=== PATIENT | female | born 1940 | race Caucasian/White ===

== ENCOUNTER 2017-03-30 13:14 | Day surgery (SDC) | payer MEDICARE ==
[2017-03-30] MEDS ORDERED: PROPOFOL 10 MG/ML VIAL IV ONE (13:15)
[2017-03-30] MEDS ORDERED: LIDOCAINE 2% MDV (20MG/ML) 20ML VIAL IV ONE (13:15)
--- NOTE | 2017-03-31 13:50 | Operative Note ---
DATE OF SURGERY: 03/30/2017 REFERRING PHYSICIAN: Cristobal Almanza DO PREOPERATIVE DIAGNOSIS: See below. POSTOPERATIVE DIAGNOSIS: See below. PROCEDURE: COLONOSCOPY to the cecum. INDICATION: History of adenomatous polyps with 2 large polyps removed 3 years ago. She returns at this time for surveillance. Intravenous sedation was administered by the Department of Anesthesiology and included Diprivan titrated to effect. PROCEDURE: Following informed consent from this alert individual, including a discussion of the risks and benefits of the procedure and an opportunity for the patient to ask questions, the patient was placed in the left lateral decubitus position. A digital rectal examination was performed. No abnormalities were noted. Following this, an Olympus [id number] video colonoscope was inserted into the rectum without resistance. The rectal mucosa had a normal appearance, with normal folds and distensibility. The colonoscope was advanced up through the bowel to the level of the cecum without much difficulty. Throughout the bowel, the mucosa appeared normal, the folds are normal and the bowel is fairly well distensible. There was a bit of retained liquid and semisolid stool noted, most of which could be washed away with water wash with fairly good visualization. The cecum was defined by noting the appendiceal orifice and ileocecal valve. From the base of the cecum, the colonoscope was then withdrawn. No abnormalities were noted upon withdrawal. Retroflexion of the rectum was endoscopically unremarkable. The instrument was removed. The patient tolerated the procedure well and was returned to the recovery area in stable condition. IMPRESSION: Unremarkable colonoscopy to the cecum. RECOMMENDATIONS: Patient was advised to have recheck colonoscopy in 5 years' time for polyp surveillance. She will otherwise follow up with Dr. Cristobal Almanza. As always, thank you for allowing me to participate in the care of your patient. CC: DO ROD Hodgson
== END 2017-03-30 14:43 | disposition home or self-care (01) ==
LOC: HOP 13:14
PROVIDERS: ATTEND Internal Medicine Gastroenterology
DX: Z12.11 Encounter for screening for malignant neoplasm of colon (principal); Z86.010 Personal history of colon polyps; E78.00 Pure hypercholesterolemia, unspecified; F32.9 Major depressive disorder, single episode, unspecified
CPT/HCPCS: 00740; G0105

== ENCOUNTER 2017-06-11 04:35 | Emergency (ER) | payer MEDICARE ==
[2017-06-11] MEDS ORDERED: SODIUM CHLORIDE 0.9% 500 ML IV ONE (04:49)
[2017-06-11] MEDS ORDERED: MECLIZINE 25 MG TABLET PO ONE (04:49)
--- NOTE | 2017-06-11 04:57 | Emergency Department Record ---
History of Present Illness - General Chief Complaint: Dizziness Stated Complaint: DIZZY Time Seen by Provider: 06/11/17 04:37 Source: Patient, Family Mode of Arrival: Ambulatory Limitations: No limitations - History of Present Illness Initial Comments: 76 yo female presents with dizziness that started about 25 hours ago upon waking yesterday morning. She has a feeling of spinning and unsteadiness. The symptoms gradually improved yesterday but never resolved. She woke at 4am this morning with a return of symptoms. She has had vertigo in the past. She feels the most intense symptoms with moving and changing position. If she is still she feels much better. No other symptoms associated. No headache, double vision, speech changes, no coordination changes of the hands or arms, no swallowing changes. No history of stroke. PCP is Dr Almanza. Complaint: Dizziness -: Hour(s) (25 hours) Timing: Awoke with symptoms (yesterday) Description: Difficulty walking, "Room spinning", Sense of movement History of Same: Yes History of Trauma: No Severity: Moderate Improves With: Remaining still Worsens With: Movement, Position Associated Symptoms: Denies other symptoms - Shay Coma Scale Eye Response: (4) Open spontaneously Motor Response: (6) Obeys commands Verbal Response: (5) Oriented Shay Total: 15 - Symptoms of Stroke Onset of Symptoms Date: 06/10/17 Onset of Symptoms Time: 04:00 Symptoms of stroke: Dizziness - Related Data Home Medications Medication Instructions Recorded Confirmed Last Taken Multivitamin [Multi-Vitamin Daily] 1 each PO DAILY 06/11/17 06/11/17 Unknown Paroxetine HCl [Paroxetine HCl] 20 mg PO DAILY 06/11/17 06/11/17 Unknown Rosuvastatin Calcium [Crestor] 5 mg PO DAILY 06/11/17 06/11/17 Unknown Previous Rx's Medication Instructions Recorded Meclizine HCl [Antivert] 25 mg PO Q8H #20 tablet 06/11/17 Allergies Allergy/AdvReac Type Severity Reaction Status Date / Time animal organ concentrates Allergy Unknown PT UNSURE Unverified 06/11/17 04:52 OF REACTION cortisone Allergy Unknown PT UNSURE Verified 06/11/17 04:52 OF REACTION Review of Systems Constitutional: Denies: Chills, Fever, Malaise, Weakness Eyes: Denies: Eye discharge ENT: Denies: Congestion, Throat pain Respiratory: Denies: Cough, Dyspnea, Hemoptysis Cardiovascular: Denies: Chest pain, Dyspnea on exertion, Edema, Palpitations, Syncope Endocrine: Denies: Fatigue Gastrointestinal: Denies: Abdominal pain, Diarrhea, Nausea, Vomiting Genitourinary: Denies: Dysuria, Urgency Musculoskeletal: Denies: Arthralgia, Back pain, Joint swelling, Myalgia Skin: Denies: Bruising, Change in color, Rash Neurological: Reports: Abnormal gait, Vertigo. Denies: Confusion, Numbness, Paresthesias, Tingling, Tremors, Weakness Psychiatric: Denies: Anxiety Hematological/Lymphatic: Denies: Blood Clots, Easy bleeding, Easy bruising, Swollen glands Past Medical History - SOCIAL HISTORY Smoking Status: Former smoker - RESPIRATORY Hx Respiratory Disorders: No - CARDIOVASCULAR Hx Cardio Disorders: Yes Hx Abnormal EKG: Yes Hx Irregular Heartbeat: Yes (SVT) Comment:: high cholesterol - NEURO Hx Neuro Disorders: No - GI Hx GI Disorders: Yes Hx of Polyps: Yes - Hx Genitourinary Disorders: No - ENDOCRINE Hx Endocrine Disorders: No - MUSCULOSKELETAL Hx Musculoskeletal Disorders: Yes Hx Arthritis: Yes (hands) - PSYCH Hx Psych Problems: Yes Hx Anxiety: Yes Hx Depression: Yes - HEMATOLOGY/ONCOLOGY Hx Hematology/Oncology Disorders: No Physical Exam - General General Appearance: Alert, Oriented x3, Cooperative, No acute distress Limitations: No limitations - Head Head exam: Atraumatic, Normocephalic, Normal inspection - Eye Eye exam: Normal appearance, PERRL, EOMI, Nystagmus (few beats with rightward gaze). negative: Conjunctival injection, Periorbital swelling, Scleral icterus Pupils: negative: Irregular, Unequal - ENT ENT exam: Normal exam, Mucous membranes moist, Normal orophraynx, TM's normal bilaterally Ear exam: Normal external inspection Nasal Exam: Normal inspection Mouth exam: Normal external inspection Teeth exam: Normal inspection Throat exam: Normal inspection - Neck Neck exam: Normal inspection, Full ROM. negative: Tenderness - Respiratory Respiratory exam: Normal lung sounds bilaterally. negative: Respiratory distress, Rhonchi, Stridor, Wheezes - Cardiovascular Cardiovascular Exam: Regular rate, Normal rhythm, Normal heart sounds. negative : Diastolic murmur, Systolic murmur Peripheral Pulses: 2+: Radial (R), Radial (L) - GI/Abdominal GI/Abdominal exam: Soft. negative: Tenderness - Rectal Rectal exam: Deferred - exam: Deferred - Extremities Extremities exam: Normal inspection, Full ROM, Normal capillary refill. negative: Tenderness - Back Back exam: Reports: Normal inspection, Full ROM. Denies: Muscle spasm, Rash noted, Tenderness - Neurological Neurological exam: Alert, CN II-XII intact, Normal gait, Oriented X3, Other ( Normal finger to nose, no pronator drift). negative: Altered, Motor sensory deficit - Psychiatric Psychiatric exam: Normal affect, Normal mood - Skin Skin exam: Dry, Intact, Normal color, Warm Course Vital Signs 06/11/17 04:45 Temperature 97.6 F Pulse Rate [ 87 Pulse Ox Probe] Respiratory 16 Rate Blood Pressure 127/63 [Left Arm] Pulse Ox 98 - Reevaluation(s) Reevaluation #1: EKG 05:01 NSR rate 78, intervals normal, axis normal, ST normal. Normal EKG 06/11/17 05:07 06/11/17 05:24 No acute changes on the CBC,BMP or Mg. 06/11/17 05:52 The [facility] HCT report was reviewed. Likely 1.9 x 1.5cm meningioma noted. No edema or mass effect. No hemorrhage. No white matter disease. 06/11/17 06:02 The patient is aware of the meningioma. She states this was discovered several years ago. She subjectively feels much better after the Antivert. She will be given and ambulation trial. 06/11/17 06:08 The patient was ambulated She feels greatly improved and stable DC to follow up with her PCP Medical Decision Making - Lab Data Result diagrams: 06/11/17 04:50 06/11/17 04:50 Disposition Disposition: Discharge Clinical Impression: Dizziness, Vertigo Disposition: Home, Self-Care Condition: (1) Good Instructions: Dizziness (ED), Vertigo (ED) Additional Instructions: Call your family doctor for close follow up after today's ER visit Return if the dizziness returns or if you have any new concerns or symptoms You may take the Antivert every 6 hours for dizziness. Prescriptions: Meclizine HCl [Antivert] 25 mg PO Q8H #20 tablet Forms: Patient Portal Access Time of Disposition: 06:08 Quality - Quality Measures Quality Measures: N/A - Blood Pressure Screening Does Patient Have Any of the Following: No Blood Pressure Classification: Pre-Hypertensive BP Reading Systolic Measurement: 125 Diastolic Measurement: 62 Screening for High Blood Pressure: < Pre-Hypertensive BP, F/U Documented > [ [id number]] Pre-Hypertensive Follow-up Interventions: Referral to alternative/primary care provider.
[2017-06-11 05:02] LABS: HEMATOCRIT 41.7 % (35.0-47.0); MEAN CELL VOLUME 100.7 fl (81-97); MEAN CORPUSCULAR HEMOGLOBIN 31.4 pg (27-33); MEAN CORPUSCULAR HGB CONC 31.2 g/dl (32-36); MEAN PLATELET VOLUME 10.4 fl (7.4-10.4); PLATELET COUNT 225 K/uL (130-400); RED BLOOD COUNT 4.14 M/uL (3.80-5.40); RED CELL DISTRIBUTION WIDTH 13.1 % (11.5-14.5); WHITE BLOOD COUNT W/O DIFF 6.2 K/uL (4.2-12.2)
[2017-06-11 05:10] LABS: BLOOD UREA NITROGEN 19 mg/dL (8-23); CREATININE 0.8 mg/dL (0.5-0.9); EST GLOMERULAR FILTRATION RATE > 60 mL/min
[2017-06-11 05:13] LABS: GLUCOSE,RANDOM 110 mg/dL (74-109)
--- NOTE | 2017-06-12 07:44 | CT SCAN REPORT ---
EXAM: EMERGENCY HEAD CT WITHOUT CONTRAST HISTORY: DIZZINESS. TECHNIQUE: Axial CT scan of the head was performed without IV contrast. A preliminary report was provided by [facility]. Comparison: Head CT 06/13/08. FINDINGS: No definite acute intracranial hemorrhage identified. No midline shift evident. Mild generalized atrophy is present. No definite acute infarct seen, however, there is an extraaxial hyperdense mass abutting the left side of the falx cerebri posterosuperiorly. This mass measures about 1.9 x 1.5 cm in size and contains a small amount of calcification. This likely represents a small meningioma. The mass also abuts the superior sagittal sinus and cannot be from the sinus. As a result the possibility of sagittal sinus invasion cannot be excluded. Follow-up MRI with contrast may be useful for further evaluation if clinically warranted. There is visual complete opacification of the visualized right maxillary sinus today. Elsewhere the visualized paranasal sinuses all appear essentially clear. IMPRESSION: 1. NO ACUTE INTRACRANIAL HEMORRHAGE OR MIDLINE SHIFT EVIDENT. 2. MILD GENERALIZED ATROPHY. 3. COMPLETE OPACIFICATION OF THE VISUALIZED RIGHT MAXILLARY SINUS. 4. 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 JOB NUMBER: [id number] MTDD
== END 2017-06-11 06:23 | disposition home or self-care (01) ==
LOC: ER 04:35
DX: R42 Dizziness and giddiness (principal); R26.2 Difficulty in walking, not elsewhere classified
CPT/HCPCS: 70450; 80048; 83735; 85027; 93005; 93010; 99284